=== PATIENT | male | born 1990 | race American Indian/Alaskan Native ===

== ENCOUNTER 2018-04-26 21:54 | Emergency (ER) | payer SELFPAY ==
[2018-04-26 22:38] VITALS: BP 142/92
[2018-04-27] MEDS ORDERED: ROCEPHIN IM STA (00:18)
[2018-04-27] MEDS ORDERED: ZITHROMAX PO STA (00:18)
[2018-04-27] MEDS ORDERED: XYLOCAINE 1% MPF 5 mL INFILTRATI ONE (00:18)
--- NOTE | 2018-04-27 00:20 | Emergency Department Report ---
ED Male HPI - General Chief complaint: Urogenital-Male Stated complaint: BURNING WHEN URINATING Time Seen by Provider: 04/27/18 00:15 Source: patient Mode of arrival: Ambulatory Limitations: No Limitations - History of Present Illness MD Complaint: penile discharge, dysuria -: Gradual (2), days(s) Location: penis Radiation: none Severity: mild Quality: burning Consistency: constant Worsens with: urination discharge (yellow and thick), dysuria. denies: urinary retention, fever, nausea/vomiting, incontinence - Related Data Sexually active: Yes (unprotected with female2 weeks ago and startged symptoms 2-3 days ago) Previous Rx's Medication Instructions Recorded Last Taken Type metroNIDAZOLE [Flagyl] 2,000 mg PO ONCE #4 tab 04/27/18 Unknown Rx Allergies Allergy/AdvReac Type Severity Reaction Status Date / Time No Known Allergies Allergy Verified 04/26/18 22:48 ED Review of Systems ROS: Stated complaint: BURNING WHEN URINATING Other details as noted in HPI Constitutional: denies: chills, fever Eyes: denies: eye pain, eye discharge, vision change ENT: denies: ear pain, throat pain Respiratory: denies: cough, shortness of breath, wheezing Cardiovascular: denies: chest pain, palpitations Endocrine: no symptoms reported Gastrointestinal: denies: abdominal pain, nausea, diarrhea Genitourinary: dysuria. denies: urgency Musculoskeletal: denies: back pain, joint swelling, arthralgia Skin: denies: rash, lesions Neurological: denies: headache, weakness, paresthesias Psychiatric: denies: anxiety, depression Hematological/Lymphatic: denies: easy bleeding, easy bruising ED Past Medical Hx - Past Medical History Hx Asthma: Yes (as weston) - Surgical History Past Surgical History?: Yes Additional Surgical History: eye. right hand - Social History Smoking Status: Current Every Day Smoker Substance Use Type: Alcohol - Medications Home Medications: Home Medications Medication Instructions Recorded Confirmed Last Taken Type metroNIDAZOLE [Flagyl] 2,000 mg PO ONCE #4 tab 04/27/18 Unknown Rx ED Physical Exam - General Limitations: No Limitations General appearance: alert, in no apparent distress - Head Head exam: Present: atraumatic, normocephalic - Eye Eye exam: Present: normal appearance, PERRL, EOMI Pupils: Present: normal accommodation - ENT ENT exam: Present: normal exam, mucous membranes moist, TM's normal bilaterally. Absent: normal orophraynx - Neck Neck exam: Present: normal inspection, full ROM. Absent: tenderness - Respiratory Respiratory exam: Present: normal lung sounds bilaterally. Absent: respiratory distress - Cardiovascular Cardiovascular Exam: Present: regular rate, normal rhythm. Absent: systolic murmur, diastolic murmur, rubs, gallop - GI/Abdominal GI/Abdominal exam: Present: soft, tenderness (suprapubic region. no inguinal LAD), normal bowel sounds - Rectal Rectal exam: Present: deferred - exam: Present: urethral discharge - Extremities Exam Extremities exam: Present: normal inspection, full ROM - Back Exam Back exam: Present: normal inspection. Absent: CVA tenderness (R), CVA tenderness (L) - Neurological Exam Neurological exam: Present: alert, oriented X3, CN II-XII intact - Psychiatric Psychiatric exam: Present: normal affect, normal mood - Skin Skin exam: Present: warm, dry, intact, normal color. Absent: rash ED Course Vital Signs 04/26/18 22:37 Temperature 98.0 F Pulse Rate 90 Respiratory 18 Rate Blood Pressure 142/92 O2 Sat by Pulse 99 Oximetry Critical care attestation.: If time is entered above; I have spent that time in minutes in the direct care of this critically ill patient, excluding procedure time. ED Disposition Clinical Impression: Penile discharge, Potential exposure to STD Disposition: DC-01 TO HOME OR SELFCARE Is pt being admited?: No Does the pt Need Aspirin: No Condition: Stable Instructions: Safe Sex (ED), Sexually Transmitted Diseases (ED) Prescriptions: metroNIDAZOLE [Flagyl] 2,000 mg PO ONCE #4 tab Referrals: PRIMARY CARE, [Primary Care Provider] - 3-5 Days [facility] [Provider Group] - 3-5 Days [facility] [Outside] - 3-5 Days
== END 2018-04-27 01:27 | disposition home or self-care (01) ==
LOC: ED 21:54
DX: R30.0 Dysuria (principal); R36.9 Urethral discharge, unspecified; J45.909 Unspecified asthma, uncomplicated; F17.200 Nicotine dependence, unspecified, uncomplicated
CPT/HCPCS: 96372; 99282; J0696